=== PATIENT | female | born 1970 | race Caucasian/White ===

== ENCOUNTER 2018-03-24 10:48 | Emergency (ER) | payer OTHER ==
[2018-03-24 10:52] VITALS: BP 144/80; PULSE 72; TEMP 98.7; BMI 35.0
[2018-03-24] MEDS ORDERED: ACETAMINOPHEN 325 MG TABLET (FP) PO ONE (11:16)
[2018-03-24] MEDS ORDERED: LIDOCAINE 5% TOPICAL PATCH TP ONE (11:16)
[2018-03-24] MEDS ORDERED: CYCLOBENZAPRINE HCL 10 MG TABLET (FP) PO ONE (11:17)
[2018-03-24] MEDS ORDERED: ACETAMINOPHEN 325 MG TABLET (FP) ONE (11:19)
[2018-03-24] MEDS ORDERED: CYCLOBENZAPRINE HCL 10 MG TABLET (FP) ONE (11:19)
[2018-03-24] MEDS ORDERED: LIDOCAINE 5% TOPICAL PATCH ONE (11:19)
--- NOTE | 2018-03-24 11:31 | PDOC ---
History of Present Illness - History of Present Illness Initial Comments: Kaia Boles is a 47yo woman with a PMH of controlled HTN and thoracic aortic aneurysm (followed with imaging yearly) who presents with acute onset of left posterior rib/scapula pain after she twisted to prevent herself from falling. She reports that her shoe slipped on Friday, and she started to fall. She twisted sharply to keep her balance, and she has had pain in the right upper back since that time. She states that the pain is worst with arm movements and deep breaths. She denies any associated chest pain, shortness of breath, sweating, lightheadedness, or nausea/vomiting. She has not had a cough, and she is able to take a deep breath despite the pain. She tried taking ibuprofen 800mg the past 2 days, 1000mg today, with some relief. She also had improvement from using an ice pack over the area. <Ann Boo - Last Filed: 03/24/18 19:24> <Dontae Gamez - Last Filed: 03/26/18 18:54> - General Chief Complaint: Back Pain Stated Complaint: BACK PAIN Time Seen by Provider: 03/24/18 10:59 Attending Attestation - Resident Resident Name: Ann Boo - ED Attending Attestation I have performed the following: I have examined & evaluated the patient, The case was reviewed & discussed with the resident, I agree w/resident's findings & plan, Exceptions are as noted - HPI HPI: 47 y/o female walked in complaining of right upper posterior back pain after bracing self to avoid a fall. No direct impact. Worried because in the past she had some fractured ribs on X rays without direct impact 03/26/18 18:49 - Physicial Exam PE: Alert, oriented x 3, mildly anxious Moderate pain in around periscapular area Lungs clear nos signs of trauma [iu03/26/18 18:51 - Medical Decision Making Rib Xray & CXR ordered,pain medication prescribed Impression periscapular pain, muscle strain 03/26/18 18:53 <Dontae Gamez S - Last Filed: 03/26/18 18:54> Past History - Past Medical History Cardiac Disorders: (Aortic aneurism) COPD: No HTN: Yes Hypercholesterolemia: Yes - Surgical History Abdominal Surgery: (gatsric sleeve x 4 years ago) - Suicide/Smoking/Psychosocial Hx Smoking History: Never smoked Hx Alcohol Use: No Drug/Substance Use Hx: No Substance Use Type: None <Ann Boo - Last Filed: 03/24/18 19:24> <Dontae Gamez - Last Filed: 03/26/18 18:54> - Past Medical History Allergies/Adverse Reactions: Allergies Allergy/AdvReac Type Severity Reaction Status Date / Time No Known Allergies Allergy Verified 03/24/18 10:49 Home Medications: Ambulatory Orders Cyclobenzaprine HCl [Flexeril -] 10 mg PO TID PRN #21 tablet 03/24/18 Naproxen 500 mg PO BID PRN #14 tablet 03/24/18 Review of Systems - Review of Systems Comments:: General: No fevers, no chills, no weight or appetite change, no malaise HEENT: No changes in vision, no changes in hearing, no congestion, no sore throat CV: No chest pain, no palpitations, no LE edema Pulm: No SOB, no cough, no wheezing GI: No nausea or vomiting, no change in bowel habits, no melena : No frequency, no urgency, no dysuria Musc: See HPI Skin: No rash, no lesions, no erythema Endo: No excessive thirst, no heat/cold intolerance Heme: No unusual bruising or bleeding, no swollen glands Neuro: No syncope, no numbness/tingling, no focal weakness Vasc: No claudication Psych: No recent change in mood, no SI or HI <Ann Boo - Last Filed: 03/24/18 19:24> *Physical Exam - Vital Signs Last Vital Signs Temp Pulse Resp BP Pulse Ox 98.7 F 72 18 144/80 100 03/24/18 10:48 03/24/18 10:48 03/24/18 10:48 03/24/18 10:48 03/24/18 10:48 - Physical Exam Comments: General: Comfortable, no acute distress HEENT: PERRL, EOMI, MMM, voice normal, normal neck ROM, no LAD Cards: RRR, no murmur appreciated Pulm: Comfortable on room air, clear to auscultation bilaterally Abd: Soft, nontender, nondistended Back: TTP at inferior right scapula v inferior ribs. No visible overlying injury Ext: Atraumatic. No LE edema. Strength equal bilaterally. Intact ROM in BUE Vasc: Extremities WWP. Skin: Normal color, no rashes or lesions Neuro: A&Ox3, CN grossly intact, normal speech, motor/sensory grossly intact and symmetric Psych: Mood appropriate to situation <Ann Boo - Last Filed: 03/24/18 19:24> - Vital Signs Last Vital Signs Temp Pulse Resp BP Pulse Ox 98.7 F 72 18 144/80 100 03/24/18 10:48 03/24/18 10:48 03/24/18 10:48 03/24/18 10:48 03/24/18 10:48 <Dontae Gamez S - Last Filed: 03/26/18 18:54> Moderate Sedation - Procedure Monitoring Vital Signs: Procedure Monitoring Vital Signs Temperature 98.7 F 03/24/18 10:48 Pulse Rate 72 03/24/18 10:48 Respiratory Rate 18 03/24/18 10:48 Blood Pressure 144/80 03/24/18 10:48 O2 Sat by Pulse Oximetry (%) 100 03/24/18 10:48 <Ann Boo - Last Filed: 03/24/18 19:24> - Procedure Monitoring Vital Signs: Procedure Monitoring Vital Signs Temperature 98.7 F 03/24/18 10:48 Pulse Rate 72 03/24/18 10:48 Respiratory Rate 18 03/24/18 10:48 Blood Pressure 144/80 03/24/18 10:48 O2 Sat by Pulse Oximetry (%) 100 03/24/18 10:48 <Dariana Gamezus S - Last Filed: 03/26/18 18:54> ED Treatment Course - Medications Given in the ED: ED Medications Discontinued Medications Generic Name Dose Route Start Last Admin Trade Name Freq PRN Reason Stop Dose Admin Acetaminophen 975 mg 03/24/18 11:16 03/24/18 11:24 Tylenol - PO 03/24/18 11:17 975 mg ONCE ONE Administration Cyclobenzaprine HCl 10 mg 03/24/18 11:17 03/24/18 11:26 Flexeril - PO 03/24/18 11:18 Not Given ONCE ONE Lidocaine 1 patch 03/24/18 11:16 03/24/18 11:24 Lidoderm Patch - TP 03/24/18 11:17 1 patch ONCE ONE Administration <Dontae Gamez - Last Filed: 03/26/18 18:54> Medical Decision Making - Medical Decision Making 03/24/18 11:16 Kaia Boles is a 47yo woman with a PMH of controlled HTN and thoracic aortic aneurysm who presents with acute onset of left posterior rib/scapula pain after she twisted to prevent herself from falling. - Pain with deep breaths, left arm movement. Given that pain started with an abrupt pull on her muscles as she caught herself from falling, most likely muscle strain. - Pt is very concerned that she broke a rib. Despite no fall or impact, will order rib xray to rule out definitively - h/o thoracic aortic aneurysm. Unlikely to be involved in current pain; Will check PA and lateral chest xray to evaluate for changes. - Acetaminophen and lidocaine patch for symptoms Discussed with Dr Gamez. Ann Boo PGY1 <Ann Boo - Last Filed: 03/24/18 19:24> *DC/Admit/Observation/Transfer - Discharge Dispostion Decision to Admit order: No <Ann Boo - Last Filed: 03/24/18 19:24> <Dontae Gamez - Last Filed: 03/26/18 18:54> Diagnosis at time of Disposition: Musculoskeletal back pain - Discharge Dispostion Disposition: HOME Condition at time of disposition: Stable - Prescriptions Prescriptions: Cyclobenzaprine HCl [Flexeril -] 10 mg PO TID PRN #21 tablet PRN Reason: Pain Naproxen 500 mg PO BID PRN #14 tablet PRN Reason: Pain - Referrals Referrals: Jack Morrison MD [Primary Care Provider] - - Patient Instructions Printed Discharge Instructions: DI for Musculoskeletal Pain Additional Instructions: Discharge Instructions: - You were seen in the emergency department for back pain after nearly falling the other day - You had xrays to make sure that there were no broken bones, but your xrays were normal - Your pain is most likely due to a muscle strain (pulled muscle) Home Care: - You have been prescribed a pain medication, naproxen, that may be taken every 12 hours as needed for pain. If you have severe, continued pain after taking this medication, you may take acetaminophen (Tylenol) 650-1000mg every 6-8 hours - You have also been prescribed a muscle relaxant called Flexeril, or cyclobenzaprine, that may be taken every 8 hours as needed for pain. Be aware that this medication may make you sleepy, so be careful not to drive until you know how you react. - You may buy lidocaine patches at any pharmacy that can be applied to the skin at the location of your pain. These can be applied for 12 hours, then removed for 12 hours. - Even though it hurts to breath, make sure you are taking deep breaths several times per hour. This can prevent you from developing a pneumonia Follow Up: - Make an appointment to see your regular doctor within the next week if your symptoms do not improve - Seek immediate medical care if your pain worsens, you are unable to take a deep breath or have difficulty breathing, or you cannot move your arms normally.
[2018-03-24] MEDS ORDERED: LIDOCAINE PATCH REMOVAL MC SCH (22:00)
== END 2018-03-24 12:20 | disposition home or self-care (01) ==
LOC: SUPCPDRO 10:48 → FER 10:48
DX: M79.18 Myalgia, other site (principal); I10 Essential (primary) hypertension; I71.9 Aortic aneurysm of unspecified site, without rupture
CPT/HCPCS: 71046-TC-FY; 71101-TC-RT-FY; 99282-25